=== PATIENT | male | born 1950 | race African-American/Black ===

== ENCOUNTER 2020-01-07 19:54 | Inpatient (IN) | payer MEDICARE ==
[~2020-01-07] VITALS: Ht 182.9 cm; Wt 107.2 kg
[2020-01-07 20:31] VITALS: BP 117/60
[2020-01-07] MEDS ORDERED: ATOR40TA59 PO (20:44)
[2020-01-07] MEDS ORDERED: LEFL10TA13 PO (20:44)
[2020-01-07] MEDS ORDERED: METO-239 PO (20:44)
[2020-01-07] MEDS ORDERED: WARF-31 PO (20:44)
[2020-01-07] MEDS ORDERED: HYDR-2761 PO (20:44)
[2020-01-07] MEDS ORDERED: TAMS0.4C97 PO (20:44)
[2020-01-07 23:44] VITALS: BP 135/67
[2020-01-07] MEDS ORDERED: ACETAMINOPHEN 325 MG TABLET. PO PRN (23:45)
[2020-01-07] MEDS ORDERED: IV NORMAL SALINE 1000ML BAG 1,000 ML IV SCH (23:45)
[2020-01-08 03:40] VITALS: BP 126/62
[2020-01-08] MEDS ORDERED: HYDROcodone/APAP 5/325MG 1 TAB TABLET PO PRN (05:00)
[2020-01-08 06:06] LABS: ALBUMIN 2.4 g/dL (3.4-5.0); ALBUMIN/GLOBULIN RATIO 0.5 (1.0-1.7); CALCIUM 7.5 mg/dL (8.5-10.1); CREATININE 1.4 mg/dL (0.7-1.3); POTASSIUM 3.8 mmol/L (3.5-5.1); TOTAL BILIRUBIN 0.3 mg/dL (0.2-1.0); TOTAL PROTEIN 7.4 g/dL (6.4-8.2)
[2020-01-08 06:07] LABS: BASO % 0 % (0-3); EOS % 0 % (0-3); HEMATOCRIT 36.5 % (39.0-53.0); HEMOGLOBIN 12.3 g/dL (13.0-17.5); LYMPH # 1.2 x10^3/uL (1.0-4.8); LYMPH % 11 % (24-48); MEAN CORPUSCULAR HEMOGLOBIN 26 pg (25-35); MEAN CORPUSCULAR HGB CONC 34 g/dL (31-37); MEAN CORPUSCULAR VOLUME 76 fL (79-100); MONO # 0.7 x10^3/uL (0.0-1.1); MONO % 6 % (0-9); NEUT % 82 % (31-73); PLATELET COUNT 147 x10^3/uL (140-400); RED CELL DISTRIBUTION WIDTH 17.9 % (11.5-14.5); WHITE BLOOD COUNT 10.9 x10^3/uL (4.0-11.0)
[2020-01-08 06:17] LABS: PROTHROMBIN TIME PATIENT 32.7 SEC (11.7-14.0)
[2020-01-08 07:00] VITALS: BP 132/68
[2020-01-08 07:14] LABS: D-DIMER 4.69 ug/mlFEU (0.00-0.50)
[2020-01-08] MEDS ORDERED: DEXAMETHASONE 4 MG TABLET PO SCH (08:00)
[2020-01-08 08:58] LABS: BASE EXCESS ABG -5 mmol/L (-3-3); HCO3 ABG 17 mmol/L (21-28); PCO2 ABG 23 mmHg (35-46); PO2 ABG 70 mmHg (65-108); SAT O2 ABG 94 % (92-99)
[2020-01-08] MEDS ORDERED: TAMSULOSIN 0.4 MG CAP.ER.24H. PO SCH (09:00)
[2020-01-08] MEDS ORDERED: LEFLUNOMIDE 10 MG TABLET. PO SCH (09:00)
[2020-01-08] MEDS ORDERED: WARFARIN 5 MG TABLET. PO SCH (09:00)
[2020-01-08] MEDS ORDERED: METOPROLOL TART IMMED RELEASE 25 MG TABLET. PO SCH (09:00)
[2020-01-08 09:01] LABS: FIO2 ABG ROOM AIR
--- NOTE | 2020-01-08 09:56 | CONS ---
DATE OF CONSULTATION: 01/08/2020 PULMONARY CONSULTATION ATTENDING PHYSICIAN: Carlos Zavala MD REASON FOR CONSULTATION: COVID pneumonia. HISTORY OF PRESENT ILLNESS: The patient is a 69-year-old male, who was tested positive for COVID. He was brought into the hospital. He has been COVID positive for about 9 days. He has mild shortness of breath; however, currently, he is on room air. He has mild cough. No fever. No chills. His room air saturation is 96%. I have reviewed his chest x-ray; it shows mild faint patchy infiltrates. He denies any significant tobacco history. No chest pain. No headache. No nausea, vomiting, or diarrhea. PAST MEDICAL HISTORY: History of hypertension. History of chronic anticoagulation. PAST SURGICAL HISTORY: No recent surgery. ALLERGIES: PENICILLIN AND LEVOFLOXACIN. MEDICATIONS: Were reviewed; as listed in the [facility], including warfarin and antibiotics. REVIEW OF SYSTEMS: A 12-point system obtained. Pertinent positives discussed in my history of present illness, otherwise noncontributory. All systems that were negative were reviewed as well. SOCIAL HISTORY: Nonsmoker. FAMILY HISTORY: Noncontributory to lungs. PHYSICAL EXAMINATION: VITAL SIGNS: Reviewed. Afebrile. Pulse ox 96% on room air. GENERAL: Visual exam done due to COVID pandemia. No obvious respiratory distress. SKIN: With no rash. LABORATORY DATA: Reviewed. White cell count 10.9, hemoglobin 12.3 and platelets are 147. BUN 19, creatinine 1.4. ABGs with a pH of 7.48, pCO2 of 23, and a pO2 of 70 with a bicarb of 17. IMPRESSION: 1. Dyspnea secondary to COVID-19 pneumonia. 2. Abnormal chest x-ray secondary to COVID-19 pneumonia. No significant hypoxia. 3. Mild azotemia. 4. No significant tobacco history. RECOMMENDATIONS: 1. From a pulmonary standpoint, the patient is stable. He is afebrile. He is on room air with saturation of 96%. He could be discharged home on oral antibiotics. 2. At this point, he does not need steroids or plasma. 3. Anticoagulation per PCP. 4. Antibiotics can be changed to p.o. 5. Discussed with RN. SILVIA ARGUETA MD DR: JAZZY/felton JOB#: [id number] / [id number]
[2020-01-08 11:00] VITALS: BP 137/65
[2020-01-08] MEDS ORDERED: PRED20TA PO (11:57)
[2020-01-08] MEDS ORDERED: CEFD300C PO (11:57)
[2020-01-08] MEDS ORDERED: AZIT250T PO (11:57)
--- NOTE | 2020-01-08 12:43 | HP ---
ADMIT DATE: HISTORY OF PRESENT ILLNESS: The patient is a 69-year-old -[place] male patient, who apparently was diagnosed with COVID-19 during the course of investigation of his nodules in his lung as well as his abdominal aortic aneurysm. He did have a PET scan for adrenal nodules, performed greater than 1 week ago. At that time, there were concerning lung opacities prompting him to get tested for COVID and he tested positive and this test was performed 9 days ago and ever since, the patient reports classic COVID-19 symptoms such as fever, chills, malaise, nausea, decreased appetite and worsening shortness of breath. Local health department has been calling the patient daily and reported today he sounded worse than usual and so they advised him to seek care at his local Emergency Room for evaluation. When he arrived there, the patient was short of breath and febrile. He denies any productive cough, syncope, headache, lightheadedness, chest pain, abdominal pain. He has been taking old daily medication as scheduled, has been compliant with supportive care measures at home as advised by his primary care physician who diagnosed the patient with COVID-19 and on arrival to the Emergency Room, he has had multiple investigations including an EKG, chest x-ray as well as lab work. He was febrile on arrival with a temperature of 102 Fahrenheit as well as 101.9. His lab work showed his white cell count was slightly elevated at 11,200. His prothrombin time, INR and aPTT were supratherapeutic and his chemistry showed hypokalemia and elevated lactate dehydrogenase as well as markedly elevated C-reactive protein of 128 mg/dL. His chest x-ray showed that he has patchy peripheral airspace opacities, left greater than right, compatible with atypical pneumonia and therefore, the patient was transferred to [facility] for further evaluation and treatment as the ER physician seemed to concern that he has worsening symptoms of COVID-19 pneumonia. He was started on IV Rocephin, Zithromax as well as given potassium supplement and dexamethasone. PAST MEDICAL HISTORY: Significant for hypertension and hyperlipidemia. He has also rheumatoid arthritis as well as cancer and a history of diverticulitis. PAST SURGICAL HISTORY: Significant for tonsillectomy. ALLERGIES: HE IS ALLERGIC TO PENICILLIN AND LEVOFLOXACIN. MEDICATIONS: He is currently on following medications: He is on tamsulosin 0.4 mg at bedtime for enlarged prostate. He is on warfarin 9 mg daily, atorvastatin calcium 40 mg at bedtime, metoprolol succinate 25 mg once a day, hydrocodone/APAP 5/325 one tablet every 6 hours and leflunomide 20 mg daily. FAMILY HISTORY: His father at the age of 73 because of cancer. Mother in her early 80s because of Alzheimer disease. He has 2 brothers and 1 sister, younger and healthy. SOCIAL HISTORY: He is , has 6 children. He does not smoke and never smoked before. He drinks alcohol occasionally. Does not use any drugs or marijuana. He was a cook. REVIEW OF SYSTEMS: The patient denied any blurring of vision, cataract, glaucoma or macular degeneration. Denied any earache, tinnitus or sensorineural deafness. Denied any nosebleeds, stuffy nose or postnasal drip. Denied any sore throat, sore tongue, toothache, hoarseness of voice or difficulty swallowing. Denied any nausea, vomiting, diarrhea or constipation. Denied any hematemesis, melena or hematochezia. Denied any dysuria, frequency or hematuria. He denied any chest pain. Did say that he has some shortness of breath and cough that is mostly dry. He was febrile on arrival to the Emergency Room with temperature up to 102. PHYSICAL EXAMINATION: GENERAL: On examining him, he looked well and was clearly in no apparent respiratory distress. No pallor, jaundice, cyanosis or thyromegaly. No jugular venous distention. No lower limb edema. VITAL SIGNS: His heart rate on arrival to the Emergency Room was 104, blood pressure was 121/54, temperature was 102 Fahrenheit, respiratory rate was 27 and oxygen saturation was 95%. HEAD, EYES, EARS, NOSE AND THROAT: Normocephalic, atraumatic. NECK: Supple. CARDIAC: Normal first and second heart sounds. No gallop, rub or murmur. CHEST: Clear to auscultation. No crepitation or rhonchi. ABDOMEN: Distended, soft, nontender. There is no guarding or rigidity. No organomegaly. All hernial orifice intact. Bowel sounds normal. NEUROLOGIC: He is awake, alert, responding appropriately. There are no obvious lateralizing signs. All his cranial nerves are intact. He moves extremities without difficulty, ambulates without assistance or assistive devices. PSYCHOLOGIC: His affect and judgment are normal. He has had an EKG, which showed that he was in sinus tachycardia with a heart rate of 102 beats per minute with DE interval at 208, otherwise remaining interval was unremarkable. No evidence of ST-segment elevation myocardial infarction. His chest x-ray showed that the patient has patchy peripheral airspace opacities, likely left greater than right, compatible with atypical pneumonia. LABORATORY DATA: Showed his white cell count to be 11,200, hemoglobin 12.5, hematocrit 37, MCV 76 and platelet count of 158,000. His chemistry showed a serum sodium 135, potassium 3.2, chloride 100, bicarbonate 24, anion gap of 11, BUN 18, creatinine 1.6, estimated GFR was 52 mL per minute, his glucose 118, lactic acid is 1.3. Total bilirubin, AST, ALT, alkaline phosphatase were normal. Total protein was 8.3 and albumin was 2.9. His lactate dehydrogenase was 477 and C-reactive protein was 128 mg/dL. His prothrombin time was 38.8, INR of 3.9, aPTT was 56. ASSESSMENT AND PLAN: The patient was transferred to [facility] for COVID-19 pneumonia, prostate cancer, history of deep vein thrombosis to distal vein of the left lower extremity, hypokalemia, supratherapeutic INR. He was treated with IV Rocephin and Zithromax, was given potassium supplement as well as dexamethasone and was transferred to [facility] for further evaluation and treatment. We will consult the Infectious Disease as well as the floorleader. KYLIE ONEILL MD DR: MARTHA/felton JOB#: [id number] / [id number]
--- NOTE | 2020-01-08 13:02 | DS ---
DATE OF DISCHARGE: HOSPITAL COURSE: The patient was transferred yesterday from [facility] Emergency Room with a diagnosis of COVID-19 pneumonia. A chest x-ray showed patchy infiltrate. He was tested positive for almost 9 days now. In the course of investigation of adrenal nodules and has had manifested some of the classic symptoms; however, by the time he arrived here the patient was hemodynamically stable. He was afebrile. He was on room air, maintaining his oxygen saturation at 99%. OBJECTIVE: GENERAL: When I examined him this afternoon, he looked well and was clearly in no apparent respiratory distress. No pallor, jaundice, cyanosis or thyromegaly. No jugular venous distention or limb edema. VITAL SIGNS: His heart rate was 60, blood pressure was 133/68, temperature was 98, respiratory rate was 18 and oxygen saturation was 96%. HEAD, EYES, EARS, NOSE AND THROAT: Showed normocephalic, atraumatic. NECK: Supple. HEART: Showed normal first and second heart sounds. No gallop or murmur. CHEST: Clear to auscultation. No crepitation or rhonchi. ABDOMEN: Distended, soft, nontender. NEUROLOGIC: He was awake, alert, responding appropriately. All cranial nerves intact. EXTREMITIES: He moves extremities without difficulty, ambulates without assistance or assistive devices. LABORATORY DATA: Showed a white cell count of 10,900, hemoglobin 12, hematocrit 36, MCV 76 and platelet count of 147,000. His chemistry showed a serum sodium 139, potassium 3.8, chloride 105, bicarbonate 22, anion gap of 12, BUN 19, creatinine 1.4, estimated GFR was 61 mL per minute. His glucose 180, calcium was 7.5. Total bilirubin, AST, ALT, alkaline phosphatase were normal. His C-reactive protein was 107. Total protein was 7.4, albumin was 2.4. His arterial blood gas showed a pH of 7.48, pCO2 of 23, pO2 of 70, bicarbonate 17 and oxygen saturation was 94% on room air. His prothrombin time was 32.7, INR of 3.2 and D-dimer was 4.69. DISCHARGE MEDICATIONS: The patient will be discharged home to continue on Zithromax 250 mg once a day for 4 more days, cefdinir 300 mg twice a day for 7 days, tapering course of steroids. He should continue also on atorvastatin 40 mg at bedtime, hydrocodone/CPAP 5/325 every 6 hours, leflunomide 20 mg daily, metoprolol succinate 25 mg twice a day, tamsulosin, Flomax 0.4 mg daily and warfarin sodium he takes 9 mg daily. FINAL DISCHARGE DIAGNOSES: 1. COVID-19 pneumonia versus possible community-acquired pneumonia. 2. Mild azotemia, resolved. 3. Hypertension. 4. Hyperlipidemia. 5. Deep vein thrombosis on Coumadin. 6. History of prostate cancer and rheumatoid arthritis. The patient was advised to follow with his primary care physician. I am not sure that he needs to continue on anticoagulation given that he was diagnosed with DVT years ago. KYLIE ONEILL MD DR: MARTHA/felton JOB#: [id number] / [id number]
[2020-01-08] MEDS ORDERED: AZITHROMYCIN 500 MG in IV NORMAL SALINE 250ML 250 ML IV SCH (16:00)
--- NOTE | 2020-01-08 16:24 | NUR ---
Discharge Note: LYDIA GUZMAN6 [facility] Discharge instructions and discharge home medications reviewed with Patient and a copy given. All questions have been answered and understanding verbalized. The following instructions and handouts were given: pneumonia and cardiac diet. Discontinued iv line and catheter intact. Patient discharged to home with self-care via private vehicle.
[2020-01-08] MEDS ORDERED: cefTRIAXone IV Push 2 GM VIAL. IVP SCH (17:00)
--- NOTE | 2020-01-08 17:42 | NUR ---
Pt discharged with no SW needs per RN
--- NOTE | 2020-01-08 18:01 | CONS ---
DATE OF CONSULTATION: 01/08/2020 REFERRING PHYSICIAN: Dr. Zavala. REASON FOR CONSULTATION: COVID-19 infection. HISTORY OF PRESENT ILLNESS: A 69-year-old -[place] male who was diagnosed with COVID-19 about 10 days ago at outpatient clinic. The patient had a PET scan for adrenal nodule about a week ago, which showed some lung opacities. The patient also had complaints of fever, malaise, decreased appetite, nausea, headache and worsening shortness of breath. The patient was advised by local health department to seek medical attention due to worsening shortness of breath. The patient also had fever of 101 prior to admission. Upon arrival at outside facility, the patient's white count was normal. PT/INR were supratherapeutic. Potassium was low. Elevated lactate dehydrogenase and C-reactive protein of 128. Chest x-ray showed bilateral infiltrates. The patient was transferred to [facility] for further evaluation and treatment. Here the white count was 10.9, hemoglobin of 12.3, hematocrit 36.5, platelets of 147. C-reactive protein is 107, calcium of 7.5, creatinine of 1.4, albumin of 2.4. INR was 3.2. The patient remains on room air, remains afebrile. He does have some dry cough and associated headache. Denies any fevers, nausea. Continues to have poor appetite. No diarrhea, no abdominal pain. No symptoms. No rash. No difficulty swallowing. The patient is on Rocephin and azithromycin. ID consult has been requested for further evaluation and treatment. PAST MEDICAL HISTORY: Hypertension, hyperlipidemia, history of prostate cancer, history of diverticulitis, history of left lower extremity DVT, on Coumadin. PAST SURGICAL HISTORY: Tonsillectomy. ALLERGIES: PENICILLIN CAUSING SOME NEUROLOGIC PROBLEMS IN THE LOWER EXTREMITY, but has tolerated amoxicillin. LEVAQUIN CAUSES RASH. CURRENT MEDICATIONS: IV Rocephin, azithromycin, warfarin. FAMILY HISTORY: As per HPI. SOCIAL HISTORY: used to work as a cook. Currently off work, visited [facility] from 09/06/2019 to 11/20/2019. Does not smoke. No alcohol, no drugs or marijuana. The patient's [id number] lives with the patient. REVIEW OF SYSTEMS: Negative except for above in HPI. PHYSICAL EXAMINATION: VITAL SIGNS: Temperature 98.2, pulse 60, respiratory rate 18, blood pressure 137/65, oxygen saturation 99% on room air. GENERAL: Alert and oriented x 3, pleasant male, lying in bed comfortably, in no acute distress. HEENT: Normocephalic, atraumatic, anicteric. No thrush. Oral mucosa moist. NECK: Supple, no JVD. LUNGS: Clear bilaterally. No wheezing. HEART: S1, S2. No gallops or murmurs. ABDOMEN: Soft, nontender, nondistended, no rebound, no guarding. EXTREMITIES: No edema, no cyanosis. DERMATOLOGIC: Warm and dry. No generalized rash. NEUROLOGIC: Alert and oriented x 3, grossly nonfocal. PSYCHIATRIC: Cooperative. LABORATORY DATA: WBC 10.9, hemoglobin 12.3, hematocrit 36.5, platelets 147. Sodium 139, potassium 3.8, chloride 105, bicarbonate 22, BUN 19, creatinine 1.4, glucose 180, calcium 7.5, total bilirubin 0.3, AST 33, ALT 28, alkaline phosphatase 74. C-reactive protein 107, total protein 7.4, albumin 2.4. INR 3.2. IMPRESSION: 1. Mild leukocytosis. 2. COVID-19 infection. 3. History of prostate cancer. 4. History of deep venous thrombosis, left lower extremity, on Coumadin. 5. Supratherapeutic INR. 6. Hypokalemia. 7. Nausea, now resolved. RECOMMENDATIONS: 1. Continue supportive care. 2. Continue azithromycin. 3. The patient remains on room air, afebrile. Can be discharged home from ID standpoint. 4. Does not need steroids or plasma at this time. 5. Supratherapeutic INR. Management per primary. 6. Antibiotic script given. 7. Discussed with RN. 8. Discussed with Dr. Zavala. Thank you for allowing me to participate in this patient's care. If you have any questions, do not hesitate to contact me. BETO ARANGO MD DR: CIARAN/felton JOB#: [id number] / [id number]
[2020-01-08] MEDS ORDERED: ATORVASTATIN CALCIUM 40 MG TABLET. PO SCH (21:00)
[2020-01-08] MEDS ORDERED: LACTOBACILLUS RHAMNOSUS GG 1 CAPSULE. PO SCH (21:00)
[2020-01-09] MEDS ORDERED: WARFARIN 5 MG TABLET. PO SCH (16:00)
[2020-01-09] MEDS ORDERED: WARFARIN 4 MG TABLET. PO SCH (16:00)
== END 2020-01-08 16:30 | disposition home or self-care (01) | DRG 177 ==
LOC: 6 SOUTH 19:54
PROVIDERS: ADMIT Internal Medicine; ATTEND Internal Medicine
DX: U07.1 COVID-19 (principal); J12.89 Other viral pneumonia; I10 Essential (primary) hypertension; M06.9 Rheumatoid arthritis, unspecified; N40.0 Benign prostatic hyperplasia without lower urinary tract symptoms; E78.5 Hyperlipidemia, unspecified; E87.6 Hypokalemia; I71.4 Abdominal aortic aneurysm, without rupture; E27.8 Other specified disorders of adrenal gland; R79.1 Abnormal coagulation profile; Z79.01 Long term (current) use of anticoagulants; Z86.718 Personal history of other venous thrombosis and embolism; Z85.46 Personal history of malignant neoplasm of prostate; Z88.0 Allergy status to penicillin; Z88.8 Allergy status to other drugs, medicaments and biological substances; Z82.0 Family history of epilepsy and other diseases of the nervous system
CPT/HCPCS: 36415; 36600; 80053; 82805; 85025; 85379; 85610; 86140; J7030; G0378